=== PATIENT | male | born 1940 | race Caucasian/White ===

== ENCOUNTER 2016-05-12 14:16 | Emergency (ER) | payer OTHER ==
[~2016-05-12] VITALS: Ht 182.9 cm; Wt 90.6 kg
[~2016-05-12 14:16] MED LIST: ATORVASTATIN CA20 MG PO; CYCLOBENZAPRINE5 MG PO; DURICEF500 MG PO; FINASTERIDE5 MG PO; GABAPENTIN600 MG PO; GLUCOTROL10 MG PO; MOTRIN800 MG PO; PIOGLITAZONE HC30 MG PO; PROTONIX40 MG PO; RANITIDINE HCL300 M1 PO; RAPAFLO4 MG PO; TOLTERODINE TART4 MG PO; TRADJENTA5 MG PO
[2016-05-12 15:08] LABS: HEMATOCRIT 40.4 % (38.0-50.0); MCH 30.6 PG (29.0-34.0); MCHC 32.4 G/DL (30.0-36.0); MCV 94.4 FL (86-99); MEAN PLAT.VOLUME 9.3 uM^3 (9.0-12.4); PLATELET COUNT 159 K/uL (156-360); RBC DIS.WIDTH-CV 12.7 % (11.8-14.6); RBC DIS.WIDTH-SD 42.4 % (39-53); RED BLOOD COUNT 4.28 M/uL (4.00-5.50); WHITE BLOOD COUNT 9.7 K/uL (4.1-10.2)
[2016-05-12 15:34] LABS: TROP-I INTERPRETATION NEGATIVE; TROPONIN-I < 0.01 ng/mL (0.0-0.30)
[2016-05-12 15:40] LABS: CHLORIDE 103 mEq/L (99-109); POTASSIUM 4.3 mEq/L (3.7-5.4); SODIUM 137 mEq/L (136-147)
[2016-05-12 15:41] LABS: GLUCOSE 217 mg/dL (70-99)
[2016-05-12 15:43] LABS: ANION GAP 11 MEQ/L (2-14)
[2016-05-12 15:45] LABS: GFR ESTIMATE (CALCULATED) 35 mL/min/
[2016-05-12 15:46] LABS: UREA NITROGEN (BUN) 21 mg/dL (9-23)
[2016-05-12 17:30] LABS: TROP-I INTERPRETATION NEGATIVE; TROPONIN-I < 0.01 ng/mL (0.0-0.30)
[2016-05-12 18:24] LABS: ADD MIUA? YES; BILIRUBIN NEGATIVE; BLOOD LARGE; COLOR YELLOW ((YELLOW)); GLUCOSE (STRIP) 100; KETONES NEGATIVE; LEUKOCYTES LARGE; NITRITE NEGATIVE; PH, URINE 6.5 (5-8); PROTEIN (STRIP) TRACE; SPECIFIC GRAVITY 1.014 (1.000-1.030)
[2016-05-12 18:47] LABS: BACTERIA 4+; CASTS NONE SEEN /LPF; CRYSTALS NONE SEEN; EPITHELIAL CELLS NONE SEEN; MUCUS NONE SEEN; RED BLOOD CELLS NONE SEEN /HPF (0-5); WHITE BLOOD CELLS TNTC /HPF (0-5)
[2016-05-12 19:02] LABS: INFLUENZA A VIRAL ANTIGEN NEGATIVE; INFLUENZA B VIRAL ANTIGEN NEGATIVE
[2016-05-12] MEDS ORDERED: LEVAQUIN750 MG PO (19:08)
[2016-05-12 19:35] VITALS: BP 154/85
== END 2016-05-12 20:17 | disposition home or self-care (01) ==
LOC: EME 14:16
PROVIDERS: Nurse Practitioner Family
DX: J06.9 Acute upper respiratory infection, unspecified (principal); J32.9 Chronic sinusitis, unspecified; N39.0 Urinary tract infection, site not specified; E11.9 Type 2 diabetes mellitus without complications; I10 Essential (primary) hypertension
CPT/HCPCS: 71020; 80048; 81003; 84484; 85027; 87502; 93005; 99281; 99285; J7030